=== PATIENT | female | born 1960 | race Caucasian/White ===

== ENCOUNTER 2017-07-07 19:06 | Inpatient (IN) | payer OTHER ==
[~2017-07-07] VITALS: Ht 175.3 cm; Wt 106.0 kg
[~2017-07-07 19:06] MED LIST: AUGMENTIN875 MG PO; BUSPAR10 MG PO; DAILY VITAMIN1 EAC4 PO; DAILY VITE1 EAC1 PO; FLUOXETINE HCL40 MG PO; FOLIC ACID1 MG PO; HYDROCHLOROTHIA25 MG PO; IBUPROFEN200 M1 PO; IBUPROFEN600 MG PO; LACTULOSE10 GM/151 PO; LASIX20 MG PO; LIBRIUM25 MG PO; LISINOPRIL20 MG PO; MECLIZINE HCL12.5 M1 PO; MEDROL 2 MG TAB2 MG PO; METHYLPREDNISOLO4 MG PO; MIDAMOR5 MG PO; MILLIPRED5 MG PO; NEXIUM20 MG PO; OXAYDO5 MG PO; OXYCODONE HCL5 MG PO; PERCOCET 5/31 TABLET PO; PROZAC20 MG PO; PROZAC40 MG PO; RAYOS2 MG PO; ROXICODONE5 MG PO; SPIRONOLACTONE50 MG PO; THIAMINE HCL100 MG PO; TRAZODONE HCL50 MG PO; VANCOMYCIN HCL125 MG PO; XIFAXAN550 MG PO; ZOFRAN ODT4 MG PO
[2017-07-07 19:33] LABS: HEMATOCRIT 44.6 % (36.0-46.0); HEMOGLOBIN 14.9 G/DL (11.9-15.5); MCH 27.2 PG (29.0-34.0); MCHC 33.4 G/DL (30.0-36.0); MCV 81.5 FL (83-99); PLATELET COUNT 228 K/uL (156-360); RBC DIS.WIDTH-CV 17.7 % (11.8-14.6); RBC DIS.WIDTH-SD 50.1 % (39-53); RED BLOOD COUNT 5.47 M/uL (3.80-5.20)
[2017-07-07 19:53] LABS: CHLORIDE 104 MEQ/L (99-109); POTASSIUM 4.6 MEQ/L (3.7-5.4); SODIUM 133 MEQ/L (136-147)
[2017-07-07 19:58] LABS: CREATININE 0.8 MG/DL (0.6-1.3); GFR ESTIMATE (CALCULATED) > 59 mL/min/; GLUCOSE 108 mg/dL (70-99); UREA NITROGEN (BUN) 16 mg/dL (9-23)
[2017-07-07 21:43] LABS: ALBUMIN 3.7 G/DL (3.2-4.8); DIRECT BILIRUBIN 0.2 mg/dL (0.0-0.3); TOTAL BILIRUBIN 1.3 MG/DL (0.0-1.0)
[2017-07-07 21:48] LABS: ALKALINE PHOSPHATASE 190 IU/L (3-129); ALT (GPT) 17 IU/L (3-49); AST (GOT) 34 IU/L (2-34); LIPASE 20 U/L (1.0-51.0); TOTAL PROTEIN 8.8 G/DL (6.4-8.3)
[2017-07-07 21:53] LABS: TROP-I INTERPRETATION NEGATIVE; TROPONIN-I 0.04 ng/mL (0.0-0.30)
[2017-07-07 22:02] LABS: CARBON DIOXIDE (BICARBONATE) 23.7 MEQ/L (20-31)
[2017-07-08] MEDS ORDERED: PROTONIX40 MG PO (00:46)
[2017-07-08] MEDS ORDERED: REMICADE10 MG/ML IV (00:48)
[2017-07-08] MEDS ORDERED: ZOLOFT25 MG PO (00:48)
[2017-07-08] MEDS ORDERED: FLOVENT 22120 INHALA IH (00:48)
[2017-07-08] MEDS ORDERED: BUSPAR10 MG PO (00:48)
[2017-07-08] MEDS ORDERED: AMITRIPTYLINE H25 MG PO (00:49)
[2017-07-08] MEDS ORDERED: TIZANIDINE HCL2 MG PO (00:49)
[2017-07-08] MEDS ORDERED: AMOXICILLIN875 MG PO (00:49)
[2017-07-08 02:21] VITALS: BP 129/85
[2017-07-08 06:55] VITALS: BP 126/83
[2017-07-08 08:44] LABS: HEMOGLOBIN 13.4 G/DL (11.9-15.5); MCHC 31.9 G/DL (30.0-36.0); MCV 81.4 FL (83-99); PLATELET COUNT 198 K/uL (156-360); RBC DIS.WIDTH-CV 17.3 % (11.8-14.6); RBC DIS.WIDTH-SD 50.5 % (39-53); RED BLOOD COUNT 5.16 M/uL (3.80-5.20); WHITE BLOOD COUNT 8.6 K/uL (4.1-10.2)
[2017-07-08 09:08] LABS: CHLORIDE 101 MEQ/L (99-109); CREATININE 0.7 MG/DL (0.6-1.3); GFR ESTIMATE (CALCULATED) > 59 mL/min/; GLUCOSE 92 mg/dL (70-99); POTASSIUM 4.1 MEQ/L (3.7-5.4); SODIUM 131 MEQ/L (136-147); UREA NITROGEN (BUN) 15 mg/dL (9-23)
[2017-07-08 10:49] LABS: APPEARANCE CLEAR ((CLEAR)); BILIRUBIN NEGATIVE; BLOOD NEGATIVE; COLOR YELLOW ((YELLOW)); GLUCOSE (STRIP) NEGATIVE; KETONES NEGATIVE; LEUKOCYTES NEGATIVE; NITRITE POSITIVE; PROTEIN (STRIP) NEGATIVE; SPECIFIC GRAVITY 1.019 (1.000-1.030); UROBILINOGEN 0.2 MG/DL (0.2-1.0)
[2017-07-08 11:01] LABS: BACTERIA 3+ /HPF; EPITHELIAL CELLS 1+ /HPF; HYALINE CASTS 0-5 /LPF; MUCUS NONE SEEN /LPF; RED BLOOD CELLS 0-5 /HPF (0-5); UCUL ADDED? YES; WHITE BLOOD CELLS 0-5 /HPF (0-5)
[2017-07-08 11:10] VITALS: BP 140/79
[2017-07-08 15:13] VITALS: BP 129/87
[2017-07-08 20:05] VITALS: BP 116/79
[2017-07-08 23:25] VITALS: BP 124/81
[2017-07-09 04:10] VITALS: BP 94/62
[2017-07-09 06:17] LABS: BASOPHIL (%) 0 % (0-1); EOSINOPHIL (%) 0 % (0-5); HEMOGLOBIN 13.9 G/DL (11.9-15.5); IMMATURE GRANULOCYTE (%) 0.3 % (0.0-0.7); LYMPHOCYTE (%) 21.5 % (15-42); LYMPHOCYTE COUNT 1.4 K/uL (1.0-2.8); MCH 26.3 PG (29.0-34.0); MCHC 30.9 G/DL (30.0-36.0); MCV 85.2 FL (83-99); MONOCYTE (%) 4.2 % (3-12); MONOCYTE COUNT 0.3 K/uL (0-0.8); NEUTROPHIL COUNT 4.9 K/uL (1.8-6.4); PLATELET COUNT 172 K/uL (156-360); RBC DIS.WIDTH-CV 17.9 % (11.8-14.6); RBC DIS.WIDTH-SD 54.6 % (39-53); RED BLOOD COUNT 5.28 M/uL (3.80-5.20); WHITE BLOOD COUNT 6.7 K/uL (4.1-10.2)
[2017-07-09 06:42] LABS: CHLORIDE 107 MEQ/L (99-109); CREATININE 0.8 MG/DL (0.6-1.3); GFR ESTIMATE (CALCULATED) > 59 mL/min/; SODIUM 135 MEQ/L (136-147); UREA NITROGEN (BUN) 17 mg/dL (9-23)
[2017-07-09 06:43] LABS: GLUCOSE 148 mg/dL (70-99); POTASSIUM 6.4 MEQ/L (3.7-5.4)
[2017-07-09 07:21] VITALS: BP 107/66
[2017-07-09 11:11] VITALS: BP 123/65
[2017-07-09 15:10] VITALS: BP 127/69
[2017-07-09 18:57] VITALS: BP 130/76
[2017-07-09 23:48] VITALS: BP 117/68
[2017-07-10 03:42] VITALS: BP 118/70
[2017-07-10 07:16] LABS: CHLORIDE 109 MEQ/L (99-109); CREATININE 0.7 MG/DL (0.6-1.3); GFR ESTIMATE (CALCULATED) > 59 mL/min/; GLUCOSE 106 mg/dL (70-99); POTASSIUM 4.9 MEQ/L (3.7-5.4); SODIUM 135 MEQ/L (136-147); UREA NITROGEN (BUN) 21 mg/dL (9-23)
[2017-07-10 07:27] VITALS: BP 133/71
[2017-07-10 11:14] VITALS: BP 122/75
[2017-07-10 15:33] VITALS: BP 136/66
[2017-07-10 20:36] VITALS: BP 158/76
[2017-07-10 23:11] VITALS: BP 139/88
[2017-07-11 04:02] VITALS: BP 150/77
[2017-07-11 07:16] VITALS: BP 121/80
[2017-07-11] MEDS ORDERED: TAMIFLU75 MG PO (07:33)
[2017-07-11] MEDS ORDERED: MUCINEX600 MG PO (07:33)
[2017-07-11] MEDS ORDERED: PREDNISONE10 MG PO (07:33)
[2017-07-11] MEDS ORDERED: VENTOLIN HFA18 GM IH (08:10)
[2017-07-11 08:46] LABS: CHLORIDE 108 MEQ/L (99-109); CREATININE 0.7 MG/DL (0.6-1.3); GFR ESTIMATE (CALCULATED) > 59 mL/min/; GLUCOSE 115 mg/dL (70-99); POTASSIUM 5.1 MEQ/L (3.7-5.4); SODIUM 137 MEQ/L (136-147); UREA NITROGEN (BUN) 22 mg/dL (9-23)
[2017-07-11 11:01] VITALS: BP 119/71
== END 2017-07-11 14:15 | disposition home or self-care (01) | DRG 193 ==
LOC: EME 19:06 → EDOF 23:52 → 5SOUTH 23:52 → ENRESERV 23:56 → 5SOUTH 07-08 01:42
PROVIDERS: Emergency Medicine; Internal Medicine; Physician Assistant Medical
DX: J10.1 Influenza due to other identified influenza virus with other respiratory manifestations (principal); J96.01 Acute respiratory failure with hypoxia; I27.20 Pulmonary hypertension, unspecified; E87.5 Hyperkalemia; E87.1 Hypo-osmolality and hyponatremia; Z76.82 Awaiting organ transplant status; R65.11 Systemic inflammatory response syndrome (SIRS) of non-infectious origin with acute organ dysfunction; E87.0 Hyperosmolality and hypernatremia; J45.21 Mild intermittent asthma with (acute) exacerbation; E87.2 Acidosis; I10 Essential (primary) hypertension; K21.9 Gastro-esophageal reflux disease without esophagitis; M54.5 Low back pain; F32.9 Major depressive disorder, single episode, unspecified; F41.9 Anxiety disorder, unspecified; F10.20 Alcohol dependence, uncomplicated; R09.02 Hypoxemia; M06.9 Rheumatoid arthritis, unspecified; J98.01 Acute bronchospasm; J32.9 Chronic sinusitis, unspecified; J45.30 Mild persistent asthma, uncomplicated; H53.8 Other visual disturbances; K70.10 Alcoholic hepatitis without ascites; K70.30 Alcoholic cirrhosis of liver without ascites; I73.00 Raynaud's syndrome without gangrene; Z90.49 Acquired absence of other specified parts of digestive tract; Z88.5 Allergy status to narcotic agent; Z88.8 Allergy status to other drugs, medicaments and biological substances; Z80.3 Family history of malignant neoplasm of breast; J44.9 Chronic obstructive pulmonary disease, unspecified; G89.29 Other chronic pain; Z82.49 Family history of ischemic heart disease and other diseases of the circulatory system
CPT/HCPCS: 71046; 71275; 80048; 80076; 81003; 82803; 83690; 83880; 84132 91; 84484; 85025; 85027; 85379; 87077; 87086; 87186; 87502; 93005; 94640; 94640 76; 94664; 94760; 94799; 99202; 99281; 99285; J1644; J7120; J7512

== ENCOUNTER 2017-09-10 10:51 | Inpatient (IN) | payer OTHER ==
[~2017-09-10] VITALS: Ht 177.8 cm; Wt 113.1 kg
[~2017-09-10 10:51] MED LIST changes: +AMITRIPTYLINE H25 MG PO; +AMOXICILLIN875 MG PO; +FLOVENT 22120 INHALA IH; +MUCINEX600 MG PO; +PREDNISONE10 MG PO; +PROTONIX40 MG PO; +REMICADE10 MG/ML IV; +TAMIFLU75 MG PO; +TIZANIDINE HCL2 MG PO; +VENTOLIN HFA18 GM IH; +ZOLOFT25 MG PO
[2017-09-10 11:27] LABS: BASOPHIL (%) 0.4 % (0-1); BASOPHIL COUNT 0.1 K/uL (0-0.1); EOSINOPHIL (%) 2.3 % (0-5); EOSINOPHIL COUNT 0.3 K/uL (0-0.3); HEMATOCRIT 40.3 % (36.0-46.0); IMMATURE GRANULOCYTE (%) 0.5 % (0.0-0.7); LYMPHOCYTE (%) 16.7 % (15-42); LYMPHOCYTE COUNT 2.2 K/uL (1.0-2.8); MCH 27.3 PG (29.0-34.0); MCHC 32.3 G/DL (30.0-36.0); MCV 84.7 FL (83-99); MONOCYTE COUNT 0.8 K/uL (0-0.8); NEUTROPHIL (%) 74.1 % (45-76); NEUTROPHIL COUNT 9.8 K/uL (1.8-6.4); PLATELET COUNT 235 K/uL (156-360); RBC DIS.WIDTH-CV 17.3 % (11.8-14.6); RED BLOOD COUNT 4.76 M/uL (3.80-5.20); WHITE BLOOD COUNT 13.2 K/uL (4.1-10.2)
[2017-09-10 11:36] LABS: CHLORIDE 109 mEq/L (99-109); POTASSIUM 4.3 mEq/L (3.7-5.4); SODIUM 137 mEq/L (136-147)
[2017-09-10 11:38] LABS: GLUCOSE 141 mg/dL (70-99)
[2017-09-10 11:41] LABS: CREATININE 0.8 mg/dL (0.6-1.3); GFR ESTIMATE (CALCULATED) > 59 mL/min/
[2017-09-10 11:42] LABS: UREA NITROGEN (BUN) 11 mg/dL (9-23)
[2017-09-10 11:49] LABS: TROP-I INTERPRETATION NEGATIVE; TROPONIN-I 0.02 ng/mL (0.0-0.30)
[2017-09-10] MEDS ORDERED: AMOXICILLIN875 MG PO (16:35)
[2017-09-10] MEDS ORDERED: OXYCODONE HCL5 MG PO (16:35)
[2017-09-10] MEDS ORDERED: FUROSEMIDE20 MG PO (16:35)
[2017-09-10] MEDS ORDERED: PANTOPRAZOLE SO40 MG PO (16:36)
[2017-09-10 16:59] VITALS: BP 136/76
[2017-09-10 18:08] LABS: TROP-I INTERPRETATION NEGATIVE; TROPONIN-I < 0.01 ng/mL (0.0-0.30)
[2017-09-10 23:27] VITALS: BP 147/78
[2017-09-11 00:46] LABS: TROP-I INTERPRETATION NEGATIVE; TROPONIN-I < 0.01 ng/mL (0.0-0.30)
[2017-09-11 04:02] VITALS: BP 124/82
[2017-09-11 06:21] LABS: HEMATOCRIT 40.9 % (36.0-46.0); HEMOGLOBIN 12.8 G/DL (11.9-15.5); MCH 26.5 PG (29.0-34.0); MCHC 31.3 G/DL (30.0-36.0); MCV 84.7 FL (83-99); PLATELET COUNT 193 K/uL (156-360); RBC DIS.WIDTH-CV 17.2 % (11.8-14.6); RBC DIS.WIDTH-SD 52.5 % (39-53); RED BLOOD COUNT 4.83 M/uL (3.80-5.20); WHITE BLOOD COUNT 14.6 K/uL (4.1-10.2)
[2017-09-11 06:41] LABS: CHLORIDE 105 MEQ/L (99-109); CREATININE 0.6 MG/DL (0.6-1.3); GFR ESTIMATE (CALCULATED) > 59 mL/min/; POTASSIUM 4.2 MEQ/L (3.7-5.4); SODIUM 136 MEQ/L (136-147); UREA NITROGEN (BUN) 14 mg/dL (9-23)
[2017-09-11 06:42] LABS: GLUCOSE 217 mg/dL (70-99)
[2017-09-11 07:57] VITALS: BP 148/73
[2017-09-11 12:19] VITALS: BP 134/72
[2017-09-11 16:11] VITALS: BP 141/79
[2017-09-11 19:48] VITALS: BP 138/77
[2017-09-11 23:42] VITALS: BP 134/84
[2017-09-12 03:58] VITALS: BP 124/76
[2017-09-12 07:42] VITALS: BP 126/75
[2017-09-12] MEDS ORDERED: PREDNISONE5 MG PO (11:59)
== END 2017-09-12 15:05 | disposition home or self-care (01) | DRG 202 ==
LOC: EME 10:51 → EDOF 14:09 → 5SOUTH 14:09 → ENRESERV 14:11 → 5SOUTH 16:05 → ENPENDDIS 09-12 13:38 → 5SOUTH 09-12 15:05
PROVIDERS: Emergency Medicine; Internal Medicine
DX: J20.9 Acute bronchitis, unspecified (principal); J96.01 Acute respiratory failure with hypoxia; J02.0 Streptococcal pharyngitis; E66.9 Obesity, unspecified; G47.00 Insomnia, unspecified; K70.30 Alcoholic cirrhosis of liver without ascites; I10 Essential (primary) hypertension; Z68.35 Body mass index [BMI] 35.0-35.9, adult; M06.9 Rheumatoid arthritis, unspecified; I73.00 Raynaud's syndrome without gangrene; F41.9 Anxiety disorder, unspecified; K21.9 Gastro-esophageal reflux disease without esophagitis
CPT/HCPCS: 71045; 71275; 80048; 84484; 85025; 85027; 93005; 94640; 94640 76; 94799; 99202; 99281; 99285; J1100; J1644; J1885; J2930; J7644

== ENCOUNTER 2018-01-13 15:15 | Inpatient (IN) | payer OTHER ==
[~2018-01-13] VITALS: Ht 175.3 cm; Wt 115.1 kg
[~2018-01-13 15:15] MED LIST changes: +FUROSEMIDE20 MG PO; +PANTOPRAZOLE SO40 MG PO; +PREDNISONE5 MG PO
[2018-01-13 16:44] LABS: BASOPHIL (%) 0.4 % (0-1); BASOPHIL COUNT 0.1 K/uL (0-0.1); EOSINOPHIL (%) 0.7 % (0-5); EOSINOPHIL COUNT 0.1 K/uL (0-0.3); HEMATOCRIT 38.7 % (36.0-46.0); HEMOGLOBIN 12.2 G/DL (11.9-15.5); IMMATURE GRANULOCYTE (%) 0.5 % (0.0-0.7); LYMPHOCYTE (%) 15.6 % (15-42); LYMPHOCYTE COUNT 2.4 K/uL (1.0-2.8); MCH 24.7 PG (29.0-34.0); MCHC 31.5 G/DL (30.0-36.0); MCV 78.3 FL (83-99); MONOCYTE (%) 7.9 % (3-12); MONOCYTE COUNT 1.2 K/uL (0-0.8); NEUTROPHIL (%) 74.9 % (45-76); NEUTROPHIL COUNT 11.3 K/uL (1.8-6.4); PLATELET COUNT 173 K/uL (156-360); RBC DIS.WIDTH-CV 17.7 % (11.8-14.6); RBC DIS.WIDTH-SD 49.1 % (39-53); RED BLOOD COUNT 4.94 M/uL (3.80-5.20); WHITE BLOOD COUNT 15.1 K/uL (4.1-10.2)
[2018-01-13 16:52] LABS: CHLORIDE 104 mEq/L (99-109); POTASSIUM 3.9 mEq/L (3.7-5.4); SODIUM 138 mEq/L (136-147)
[2018-01-13 16:54] LABS: GLUCOSE 100 mg/dL (70-99)
[2018-01-13 16:58] LABS: CREATININE 0.7 mg/dL (0.6-1.3); GFR ESTIMATE (CALCULATED) > 59 mL/min/
[2018-01-13 16:59] LABS: UREA NITROGEN (BUN) 10 mg/dL (9-23)
[2018-01-13 17:05] LABS: TROP-I INTERPRETATION NEGATIVE; TROPONIN-I < 0.01 ng/mL (0.0-0.30)
[2018-01-13 19:08] LABS: APPEARANCE CLEAR ((CLEAR)); BILIRUBIN NEGATIVE; BLOOD SMALL; COLOR YELLOW ((YELLOW)); GLUCOSE (STRIP) NEGATIVE; KETONES NEGATIVE; LEUKOCYTES MODERATE; NITRITE POSITIVE; PROTEIN (STRIP) 30; SPECIFIC GRAVITY 1.042 (1.000-1.030); UROBILINOGEN 0.2 MG/DL (0.2-1.0)
[2018-01-13 19:13] LABS: BACTERIA RARE /HPF; EPITHELIAL CELLS RARE /HPF; MUCUS TRACE /LPF; RED BLOOD CELLS 20-30 /HPF (0-5); UCUL ADDED? YES; WHITE BLOOD CELLS 20-30 /HPF (0-5)
[2018-01-13] MEDS ORDERED: OXYCODONE HCL5 MG PO (19:38)
[2018-01-13] MEDS ORDERED: PREDNISONE5 MG PO (19:43)
[2018-01-13] MEDS ORDERED: HUMIRA40 MG/0.1 SC (19:45)
[2018-01-13] MEDS ORDERED: CIALIS20 MG PO (19:48)
[2018-01-13] MEDS ORDERED: BENZONATATE200 MG PO (19:48)
[2018-01-13] MEDS ORDERED: AMITRIPTYLINE H25 MG PO (19:49)
[2018-01-13] MEDS ORDERED: FUROSEMIDE20 MG PO (19:50)
[2018-01-13] MEDS ORDERED: SERTRALINE HCL25 MG PO (19:50)
[2018-01-13] MEDS ORDERED: PANTOPRAZOLE SO40 MG PO (19:51)
[2018-01-13 20:55] VITALS: BP 175/85
[2018-01-13 22:41] LABS: TROP-I INTERPRETATION NEGATIVE; TROPONIN-I < 0.01 ng/mL (0.0-0.30)
[2018-01-13 23:53] VITALS: BP 146/68
[2018-01-14 04:00] VITALS: BP 136/77
[2018-01-14 05:03] LABS: TROP-I INTERPRETATION NEGATIVE; TROPONIN-I 0.02 ng/mL (0.0-0.30)
[2018-01-14 05:53] LABS: BASOPHIL (%) 0.3 % (0-1); EOSINOPHIL (%) 0.6 % (0-5); EOSINOPHIL COUNT 0.1 K/uL (0-0.3); HEMATOCRIT 40.5 % (36.0-46.0); HEMOGLOBIN 12.5 G/DL (11.9-15.5); IMMATURE GRANULOCYTE (%) 0.5 % (0.0-0.7); LYMPHOCYTE (%) 13.6 % (15-42); LYMPHOCYTE COUNT 2.1 K/uL (1.0-2.8); MCH 24.1 PG (29.0-34.0); MCHC 30.9 G/DL (30.0-36.0); MCV 78.2 FL (83-99); MONOCYTE (%) 7.6 % (3-12); MONOCYTE COUNT 1.2 K/uL (0-0.8); NEUTROPHIL (%) 77.4 % (45-76); NEUTROPHIL COUNT 12.1 K/uL (1.8-6.4); PLATELET COUNT 200 K/uL (156-360); RBC DIS.WIDTH-CV 18.1 % (11.8-14.6); RBC DIS.WIDTH-SD 49.6 % (39-53); RED BLOOD COUNT 5.18 M/uL (3.80-5.20); WHITE BLOOD COUNT 15.6 K/uL (4.1-10.2)
[2018-01-14 06:14] LABS: ALBUMIN 3.3 G/DL (3.2-4.8); ALKALINE PHOSPHATASE 149 IU/L (3-129); ALT (GPT) 24 IU/L (3-49); AST (GOT) 27 IU/L (2-34); CHLORIDE 101 MEQ/L (99-109); CREATININE 0.6 MG/DL (0.6-1.3); DIRECT BILIRUBIN 0.6 mg/dL (0.0-0.3); GFR ESTIMATE (CALCULATED) > 59 mL/min/; GLUCOSE 115 mg/dL (70-99); POTASSIUM 4.3 MEQ/L (3.7-5.4); SODIUM 136 MEQ/L (136-147); TOTAL BILIRUBIN 1.5 MG/DL (0.0-1.0); TOTAL PROTEIN 6.9 G/DL (6.4-8.3); UREA NITROGEN (BUN) 9 mg/dL (9-23)
[2018-01-14 07:51] VITALS: BP 153/85
[2018-01-14 15:53] VITALS: BP 139/85
[2018-01-14 19:58] VITALS: BP 156/89
[2018-01-14 23:20] VITALS: BP 147/81
[2018-01-15 04:27] VITALS: BP 134/64
[2018-01-15 08:00] VITALS: BP 141/75
[2018-01-15 12:07] VITALS: BP 119/64
[2018-01-15 16:08] VITALS: BP 133/78
[2018-01-15 19:31] VITALS: BP 129/76
[2018-01-16 00:07] VITALS: BP 118/60
[2018-01-16 03:53] VITALS: BP 109/57
[2018-01-16 06:38] LABS: HEMATOCRIT 37.2 % (36.0-46.0); HEMOGLOBIN 11.7 G/DL (11.9-15.5); MCH 24.9 PG (29.0-34.0); MCHC 31.5 G/DL (30.0-36.0); MCV 79.3 FL (83-99); PLATELET COUNT 192 K/uL (156-360); RBC DIS.WIDTH-CV 17.8 % (11.8-14.6); RBC DIS.WIDTH-SD 50.7 % (39-53); RED BLOOD COUNT 4.69 M/uL (3.80-5.20); WHITE BLOOD COUNT 11.8 K/uL (4.1-10.2)
[2018-01-16 06:57] LABS: CHLORIDE 106 MEQ/L (99-109); CREATININE 0.6 MG/DL (0.6-1.3); GFR ESTIMATE (CALCULATED) > 59 mL/min/; GLUCOSE 111 mg/dL (70-99); POTASSIUM 4.5 MEQ/L (3.7-5.4); SODIUM 141 MEQ/L (136-147); UREA NITROGEN (BUN) 14 mg/dL (9-23)
[2018-01-16 07:22] LABS: BASOPHIL (%) 0.3 % (0-1); EOSINOPHIL (%) 4.1 % (0-5); EOSINOPHIL COUNT 0.5 K/uL (0-0.3); IMMATURE GRANULOCYTE (%) 0.7 % (0.0-0.7); LYMPHOCYTE (%) 23.1 % (15-42); LYMPHOCYTE COUNT 2.7 K/uL (1.0-2.8); MONOCYTE (%) 6.3 % (3-12); MONOCYTE COUNT 0.7 K/uL (0-0.8); NEUTROPHIL (%) 65.5 % (45-76); NEUTROPHIL COUNT 7.8 K/uL (1.8-6.4); PLAT.SUFFICIENCY ADEQUATE
[2018-01-16 07:24] VITALS: BP 121/70
[2018-01-16] MEDS ORDERED: BENZONATATE200 MG PO (09:44)
[2018-01-16] MEDS ORDERED: CIPRO500 MG PO (09:45)
== END 2018-01-16 11:23 | disposition home or self-care (01) | DRG 872 ==
LOC: EME 15:15 → EDOF 19:30 → ENRESERV 19:31 → 4SOUTH 20:40 → ENPENDDIS 01-16 10:27 → 4SOUTH 01-16 11:23
PROVIDERS: Nurse Practitioner Family; Physician Assistant
DX: A41.51 Sepsis due to Escherichia coli [E. coli] (principal); N12 Tubulo-interstitial nephritis, not specified as acute or chronic; R55 Syncope and collapse; J40 Bronchitis, not specified as acute or chronic; M06.9 Rheumatoid arthritis, unspecified; K70.30 Alcoholic cirrhosis of liver without ascites; K21.9 Gastro-esophageal reflux disease without esophagitis; I27.21 Secondary pulmonary arterial hypertension; J45.909 Unspecified asthma, uncomplicated; F32.9 Major depressive disorder, single episode, unspecified; J43.9 Emphysema, unspecified; F41.9 Anxiety disorder, unspecified; I73.00 Raynaud's syndrome without gangrene; I10 Essential (primary) hypertension; E66.01 Morbid (severe) obesity due to excess calories; E86.0 Dehydration; Z87.440 Personal history of urinary (tract) infections; Z68.37 Body mass index [BMI] 37.0-37.9, adult
CPT/HCPCS: 71046; 71275; 80048; 80076; 81003; 83605; 84484; 85025; 87040; 87077; 87086; 87186; 87801; 93005; 94640; 99281; 99285; G0378; J0696; J1650; J7030